=== PATIENT | female | born 1980 | race Caucasian/White ===

== ENCOUNTER 2022-02-17 03:17 | Emergency (ER) | payer OTHER ==
[~2022-02-17] VITALS: Ht 165.1 cm; Wt 63.5 kg
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
[2022-02-17] MEDS: HYDROMORPHONE 1 MG/1 ML DISP.SYRIN IV ONE ×2 (03:48→04:15)
[2022-02-17] MEDS: ONDANSETRON 4 MG/2 ML VIAL IV ONE (03:48)
[2022-02-17 03:50] LABS: HEMATOCRIT 31.5 % (31.2-41.9); MEAN CORPUSCULAR VOLUME 88.4 fL (75.5-95.3); PLATELET COUNT (AUTO) 313 K/uL (179-408)
[2022-02-17 03:53] LABS: CARBON DIOXIDE 26 mmol/L (21-32); CHLORIDE 103 mmol/L (98-107); CREATININE 0.8 mg/dL (0.6-1.3); GLUCOSE 112 mg/dL (74-106); POTASSIUM 3.7 mmol/L (3.5-5.1); UREA NITROGEN, BLOOD 16 mg/dL (7-18)
[2022-02-17] MEDS ORDERED: HYDROMORPHONE 1 MG/1 ML DISP.SYRIN ONE (03:53)
[2022-02-17] MEDS ORDERED: ONDANSETRON 4 MG/2 ML VIAL ONE (03:54)
[2022-02-17 04:04] LABS: ALANINE AMINOTRANSFERASE 15 U/L (14-59); ALKALINE PHOSPHATASE 71 U/L (50-136); ASPARTATE AMINOTRANSFERASE 9 U/L (15-37); BILIRUBIN,DIRECT 0.1 mg/dL (0.0-0.2); BILIRUBIN,TOTAL 0.3 mg/dL (0.2-1.0); TOTAL PROTEIN, SERUM 7.3 g/dL (6.4-8.2)
[2022-02-17] MEDS ORDERED: HYDROMORPHONE 2 MG/1 ML DISP.SYRIN ONE (04:21)
[2022-02-17] MEDS ORDERED: IOHEXOL 300MG/ML 100 ML INFUS..BTL ONE (04:52)
[2022-02-17] MEDS ORDERED: IV NORMAL SALINE 250 ML IV ONE (04:53)
[2022-02-17] MEDS ORDERED: SWABABLE VALVE TRANSFER SET EA MC ONE (04:53)
--- NOTE | 2022-02-17 05:13 | NUR ---
pt went to CT
[2022-02-17] MEDS ORDERED: CLAR-45 PO (06:20)
[2022-02-17] MEDS ORDERED: AMOX500T2 PO (06:20)
[2022-02-17] MEDS ORDERED: OXYC-128 PO (06:20)
[2022-02-17] MEDS ORDERED: RABE20TA18 PO (06:20)
[2022-02-17] MEDS ORDERED: PROC-11 PO (06:20)
[2022-02-17] MEDS ORDERED: TINI500T18 PO (06:20)
--- NOTE | 2022-02-17 06:48 | NUR ---
Patient discharged to home in stable condition. Written and verbal after care instructions given. Patient verbalizes understanding of instructions. Stressed follow up or return to ER for worsening s/s.
[2022-02-17 06:49] VITALS: BP 118/89
== END 2022-02-17 07:12 | disposition home or self-care (01) ==
LOC: ER 03:21
DX: K29.70 Gastritis, unspecified, without bleeding (principal); K29.80 Duodenitis without bleeding; K76.0 Fatty (change of) liver, not elsewhere classified; K44.9 Diaphragmatic hernia without obstruction or gangrene; Z79.899 Other long term (current) drug therapy
CPT/HCPCS: 36415; 71045; 74177; 76705; 80048; 80076; 83690; 84484; 84702; 85025; 85379; 85730; 93005; 96374; 96375; 99285; J1170 ×2; J2405; Q9967; A4663; J7050

== ENCOUNTER 2022-07-25 01:15 | Emergency (ER) | payer OTHER ==
[~2022-07-25 01:15] MED LIST: AMOX500T2 PO; CLAR-45 PO; OXYC-128 PO; PROC-11 PO; RABE20TA18 PO; TINI500T18 PO
--- NOTE | 2022-07-25 01:48 | NUR ---
Pt not in waiting room.
== END 2022-07-25 01:48 | disposition left against medical advice (07) ==
LOC: ER 01:17
DX: Z53.21 Procedure and treatment not carried out due to patient leaving prior to being seen by health care provider (principal)

== ENCOUNTER 2022-08-16 22:52 | Emergency (ER) | payer MEDICAID, OTHER ==
[~2022-08-16] VITALS: Ht 167.6 cm; Wt 63.5 kg
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
--- NOTE | 2022-08-16 23:09 | NUR ---
Dr. whitlock at bedside for mse
[2022-08-16] MEDS ORDERED: ACETAMINOPHEN ES 500 MG TABLET PO ONE (23:15)
[2022-08-16] MEDS ORDERED: ACETAMINOPHEN ES 500 MG TABLET ONE (23:25)
--- NOTE | 2022-08-16 23:39 | NUR ---
pt taken for cat scan.
--- NOTE | 2022-08-16 23:54 | NUR ---
pt returned from cat scan.
[2022-08-17 00:06] LABS: *URINE HCG, QUAL NEGATIVE (NEGATIVE)
--- NOTE | 2022-08-17 00:38 | NUR ---
Patient discharged to home in stable condition. Written and verbal after care instructions given. Patient verbalizes understanding of instructions. Stressed follow up or return to ER for worsening s/s. pt has her young child that was brought in with her. she is calling a taxi to take her home.
[2022-08-17 00:53] VITALS: BP 130/70
== END 2022-08-17 00:54 | disposition home or self-care (01) ==
LOC: ER 22:53
DX: S09.22XA Traumatic rupture of left ear drum, initial encounter (principal); S09.90XA Unspecified injury of head, initial encounter; Y04.2XXA Assault by strike against or bumped into by another person, initial encounter; Y92.039 Unspecified place in apartment as the place of occurrence of the external cause; Y04.0XXA Assault by unarmed brawl or fight, initial encounter; Y07.01 Husband, perpetrator of maltreatment and neglect
CPT/HCPCS: 70450; 84703; A4663; A9150